=== PATIENT | male | born 1970 | race Caucasian/White ===

== ENCOUNTER 2020-07-13 07:10 | Observation (INO) | payer BC ==
[2020-07-11 14:57] LABS: BASOPHILS % 0.5 % (0.0-1.0); EOSINOPHILS # (AUTO) 0.2 (0.0-0.4); EOSINOPHILS % 2.2 % (0.0-6.0); HEMATOCRIT 42.8 % (38.2-49.6); HEMOGLOBIN 14.6 g/dL (14.0-18.0); LYMPHOCYTES # (AUTO) 2.1 (1.0-3.2); LYMPHOCYTES % 25.7 % (18.0-39.1); MEAN CORPUSCULAR HEMOGLOBIN 31.1 pg (28-32); MEAN CORPUSCULAR HGB CONC 34.1 g/dL (31-35); MEAN CORPUSCULAR VOLUME 91.1 fL (81-99); MONOCYTES # (AUTO) 0.9 (0.2-0.8); MONOCYTES % 11.7 % (4.4-11.3); NEUTROPHILS # (AUTO) 4.8 (2.1-6.9); NEUTROPHILS % 59.5 % (38.7-80.0); PLATELET COUNT 275 x10e3/uL (140-360); RED CELL DISTRIBUTION WIDTH 13.2 % (11.7-14.4)
[2020-07-11 15:16] LABS: ANION GAP 14.1 mmol/L (8-16); BLOOD UREA NITROGEN 13 mg/dL (7-26); BUN/CREATININE RATIO 13 (6-25); CALCIUM 8.8 mg/dL (8.4-10.2); CARBON DIOXIDE 28 mmol/L (22-29); CHLORIDE 102 mmol/L (98-107); CREATININE, SERUM 1.03 mg/dL (0.72-1.25); EST GLOMERULAR FILTRATION RATE > 60 ML/MIN (60-); GLUCOSE 102 mg/dL (74-118); POTASSIUM 4.1 mmol/L (3.5-5.1); SODIUM 140 mmol/L (136-145)
[~2020-07-13] VITALS: Ht 182.9 cm; Wt 165.6 kg
[~2020-07-13 07:10] MED LIST: AMLODIPINE BESY10 MG PO; LEVOTHYROXINE50 MCG PO; LOSARTAN-HCTZ1 EAC2 PO; METOPROLOL SUCC50 MG PO
[2020-07-13] MEDS ORDERED: BUPIVACAINE 0.5%/EPI 30 ML SDV INJ ONE (08:11)
[2020-07-13] MEDS ORDERED: HYDROCODONE/APAP 7.5MG-325MG 1 EA TAB PO PRN (12:45)
[2020-07-13] MEDS ORDERED: ONDANSETRON HCL INJ 2MG/ML 2ML 2 MG/ML VIAL IV PRN (12:45)
[2020-07-13] MEDS ORDERED: ACETAMINOPHEN 1000 MG/100 ML IV PRN (12:45)
[2020-07-13] MEDS ORDERED: HYDROMORPHONE 1MG/1ML INJ IV PRN (12:45)
[2020-07-13] MEDS ORDERED: PROPOFOL IV EMULSION 10 MG/ML 20 ML VIAL ONE (13:34)
[2020-07-13] MEDS ORDERED: DEXAMETHASONE SOD PHOS INJ 4 MG/ML VIAL ONE (13:34)
[2020-07-13] MEDS ORDERED: SEVOFLURANE INHAL SOLN 250 ML PEN BTL ONE (13:34)
[2020-07-13] MEDS ORDERED: POVIDONE IODINE 0.05% 0.05 % ML PO ONE (13:34)
[2020-07-13] MEDS ORDERED: NEOSTIGMINE 1 MG/ML 10ML VIAL ONE (13:34)
[2020-07-13] MEDS ORDERED: ATROPINE SULFATE 1 MG/ML VIAL ONE (13:34)
[2020-07-13] MEDS ORDERED: LIDOCAINE HCL 2% LOCAL INJ 5 ML SDV VIAL INJ ONE (13:34)
[2020-07-13] MEDS ORDERED: ONDANSETRON HCL INJ 2MG/ML 2ML 2 MG/ML VIAL ONE (13:34)
[2020-07-13] MEDS ORDERED: KETOROLAC TROMETHAMINE 30 MG/ML VIAL ONE (13:34)
[2020-07-13] MEDS ORDERED: ROCURONIUM BROMIDE 10 MG/ML 5ML VIAL IV ONE (13:34)
[2020-07-13 13:48] VITALS: BP 128/70
[2020-07-13] MEDS ORDERED: SODIUM CHLORIDE 0.9% 1000ML 1,000 ML IV SCH (14:00)
[2020-07-13] MEDS ORDERED: PANTOPRAZOLE 40 MG 10ML VIAL IV SCH (14:00)
[2020-07-13 14:17] VITALS: BP 128/70
[2020-07-13 15:26] VITALS: BP 128/70
[2020-07-13] MEDS ORDERED: CEFAZOLIN SOD 1 GM/NS 50ML 50 ML IV SCH (18:00)
[2020-07-14] MEDS ORDERED: AMLODIPINE BESYLATE 10 MG TAB PO SCH (09:00)
[2020-07-14] MEDS ORDERED: METOPROLOL SUCCINATE 50 MG TAB XL PO SCH (09:00)
== END 2020-07-13 20:18 | disposition home or self-care (01) ==
LOC: OR 07:10 → PACU V 12:46 → MED/SURG 13:38
PROVIDERS: ADMIT Surgery; ATTEND Surgery
DX: K43.6 Other and unspecified ventral hernia with obstruction, without gangrene (principal); Z20.822 Contact with and (suspected) exposure to COVID-19; Z01.818 Encounter for other preprocedural examination
CPT/HCPCS: 36415; 49561; 49568; 80048; 85025; 93005; C1781 ×2; C9113; G0378; J0461; J0690; J1100; J1885; J2001; J2405; J2704; J2710; J7030; U0002

== ENCOUNTER 2020-12-13 23:22 | Inpatient (IN) | payer BC ==
[~2020-12-13] VITALS: Ht 182.9 cm; Wt 167.8 kg
[2020-12-13] MEDS ORDERED: SODIUM CHLORIDE 0.9% 1000ML 1,000 ML IV ONE (23:45)
[2020-12-13 23:47] LABS: BASOPHILS # (AUTO) 0.1 (0.0-0.1); BASOPHILS % 0.5 % (0.0-1.0); EOSINOPHILS # (AUTO) 0.3 (0.0-0.4); EOSINOPHILS % 2.7 % (0.0-6.0); HEMATOCRIT 25.5 % (38.2-49.6); HEMOGLOBIN 8.2 g/dL (14.0-18.0); LYMPHOCYTES # (AUTO) 2.5 (1.0-3.2); LYMPHOCYTES % 22.9 % (18.0-39.1); MEAN CORPUSCULAR HEMOGLOBIN 31.7 pg (28-32); MEAN CORPUSCULAR HGB CONC 32.2 g/dL (31-35); MEAN CORPUSCULAR VOLUME 98.5 fL (81-99); MONOCYTES # (AUTO) 1.1 (0.2-0.8); MONOCYTES % 9.9 % (4.4-11.3); NEUTROPHILS # (AUTO) 6.7 (2.1-6.9); NEUTROPHILS % 61.9 % (38.7-80.0); PLATELET COUNT 230 x10e3/uL (140-360); RED BLOOD COUNT 2.59 x10e6/uL (4.3-5.7); RED CELL DISTRIBUTION WIDTH 14.8 % (11.7-14.4)
[2020-12-13] MEDS ORDERED: SODIUM CHLORIDE 0.9% 1000ML 1,000 ML ONE (23:53)
[2020-12-13 23:56] LABS: INR 1.06; PARTIAL THROMBOPLASTIN TIME 21.9 seconds (23.8-35.5)
[2020-12-14] VITALS (10 sets, daily range): BP systolic 105–142; BP diastolic 55–85
[2020-12-14 00:06] LABS: ALBUMIN/GLOBULIN RATIO 1.4 (0.8-2.0); ANION GAP 11.6 mmol/L (8-16); CALCIUM 7.7 mg/dL (8.4-10.2); CREATININE, SERUM 1.03 mg/dL (0.72-1.25); POTASSIUM 3.6 mmol/L (3.5-5.1)
[2020-12-14] MEDS ORDERED: FUROSEMIDE40 MG PO (00:26)
[2020-12-14] MEDS ORDERED: BYSTOLIC5 MG PO (00:26)
[2020-12-14] MEDS ORDERED: POTASSIUM CHLO20 ME2 PO (00:26)
[2020-12-14] MEDS ORDERED: MEN'S MULTIVIT1 EACH PO (00:32)
[2020-12-14] MEDS ORDERED: zinc PO (00:32)
[2020-12-14] MEDS ORDERED: DHEA TABLET1 EACH PO (00:32)
[2020-12-14] MEDS ORDERED: VITAMIN D310 MCG PO (00:32)
[2020-12-14] MEDS ORDERED: FISH OIL 1,0001 EAC2 PO (00:32)
[2020-12-14] MEDS ORDERED: VITAMIN B-121000 MCG PO (00:32)
[2020-12-14] MEDS ORDERED: SODIUM CHLORIDE 0.9% 50ML 50 ML ONE (00:32)
[2020-12-14] MEDS ORDERED: VITAMIN C1000 MG PO (00:32)
[2020-12-14] MEDS ORDERED: IOPAMIDOL 370 MG/ML 200 ML INFUS..BTL INJ ONE (00:32)
[2020-12-14] MEDS ORDERED: SODIUM CHLORIDE 0.9% 250ML 250 ML IV ONE (01:45)
[2020-12-14 02:28] LABS: HEMATOCRIT 22.8 % (38.2-49.6); HEMOGLOBIN 7.3 g/dL (14.0-18.0)
[2020-12-14] MEDS: SODIUM CHLORIDE 0.9% 1000ML 1,000 ML IV SCH ×3 (02:31→23:29)
[2020-12-14 06:32] LABS: HEMATOCRIT 22.3 % (38.2-49.6); HEMOGLOBIN 7.1 g/dL (14.0-18.0)
[2020-12-14] MEDS ORDERED: BISACODYL 5 MG TAB EC PO ONE ×3 (07:30→12:00)
[2020-12-14 07:31] LABS: HEMATOCRIT 22.3 % (38.2-49.6); HEMOGLOBIN 7.3 g/dL (14.0-18.0)
[2020-12-14] MEDS ORDERED: PEG (High)/E-LYTE SOLN 4,000 ML BTL PO ONE (09:00)
[2020-12-14] MEDS ORDERED: HYDRALAZINE HCL 20 MG/ML VIAL IV PRN (09:15)
[2020-12-14] MEDS ORDERED: CEFTRIAXONE 1 GM VIAL IV SCH (12:15)
[2020-12-14] MEDS: CEFTRIAXONE 1 GM in SODIUM CHLORIDE 0.9% 50ML 50 ML IV SCH ×2 (13:13→23:49)
[2020-12-14] MEDS: METRONIDAZOLE 500MG/NS 100ML 100 ML IV SCH ×2 (14:00→23:29)
[2020-12-14 14:18] LABS: HEMATOCRIT 23.4 % (38.2-49.6); HEMOGLOBIN 7.7 g/dL (14.0-18.0)
[2020-12-14 18:30] LABS: HEMATOCRIT 21.4 % (38.2-49.6)
[2020-12-14 18:35] LABS: HEMOGLOBIN 6.8 g/dL (14.0-18.0)
[2020-12-14] MEDS ORDERED: ACETAMINOPHEN 325 MG TAB PO PRN (19:45)
[2020-12-14] MEDS ORDERED: OCTREOTIDE ACETATE 500 MCG in SODIUM CHLORIDE 0.9% 250ML 249 ML IV SCH (20:00)
[2020-12-15] VITALS (7 sets, daily range): BP systolic 102–122; BP diastolic 59–72
[2020-12-15] MEDS ORDERED: SODIUM CHLORIDE 0.9% 250ML 250 ML ONE (01:17)
[2020-12-15 05:05] LABS: BASOPHILS % 0.5 % (0.0-1.0); EOSINOPHILS # (AUTO) 0.3 (0.0-0.4); EOSINOPHILS % 3.2 % (0.0-6.0); HEMOGLOBIN 7.9 g/dL (14.0-18.0); LYMPHOCYTES # (AUTO) 2.2 (1.0-3.2); MEAN CORPUSCULAR HEMOGLOBIN 31.2 pg (28-32); MEAN CORPUSCULAR HGB CONC 32.9 g/dL (31-35); MEAN CORPUSCULAR VOLUME 94.9 fL (81-99); MONOCYTES # (AUTO) 0.8 (0.2-0.8); MONOCYTES % 9.8 % (4.4-11.3); NEUTROPHILS # (AUTO) 4.5 (2.1-6.9); NEUTROPHILS % 56.3 % (38.7-80.0); PLATELET COUNT 209 x10e3/uL (140-360); RED BLOOD COUNT 2.53 x10e6/uL (4.3-5.7); RED CELL DISTRIBUTION WIDTH 16.1 % (11.7-14.4)
[2020-12-15] MEDS: METRONIDAZOLE 500MG/NS 100ML 100 ML IV SCH ×3 (05:05→20:18)
[2020-12-15 05:22] LABS: ALBUMIN 2.7 g/dL (3.5-5.0); ALBUMIN/GLOBULIN RATIO 1.5 (0.8-2.0); ANION GAP 9.6 mmol/L (8-16); CALCIUM 7.5 mg/dL (8.4-10.2); CREATININE, SERUM 0.98 mg/dL (0.72-1.25); POTASSIUM 3.6 mmol/L (3.5-5.1)
[2020-12-15 06:10] LABS: THYROID STIMULATING HORMONE 4.069 uIU/mL (0.350-4.940)
[2020-12-15] MEDS: SODIUM CHLORIDE 0.9% 1000ML 1,000 ML IV SCH (12:53)
[2020-12-15] MEDS: OCTREOTIDE ACETATE 500 MCG in SODIUM CHLORIDE 0.9% 250ML 249 ML IV SCH (15:11)
[2020-12-15] MEDS: CEFTRIAXONE 1 GM in SODIUM CHLORIDE 0.9% 50ML 50 ML IV SCH (15:11)
[2020-12-15] MEDS ORDERED: CITRATE OF MAGNESIA 300ML BOTTLE PO ONE (20:15)
[2020-12-15] MEDS ORDERED: BISACODYL 5 MG TAB EC PO ONE ×2 (22:15→23:45)
[2020-12-16] VITALS (7 sets, daily range): BP systolic 108–127; BP diastolic 55–77
[2020-12-16] MEDS: CEFTRIAXONE 1 GM in SODIUM CHLORIDE 0.9% 50ML 50 ML IV SCH ×3 (00:10→23:57)
[2020-12-16] MEDS: OCTREOTIDE ACETATE 500 MCG in SODIUM CHLORIDE 0.9% 250ML 249 ML IV SCH ×3 (01:24→21:19)
[2020-12-16] MEDS: SODIUM CHLORIDE 0.9% 1000ML 1,000 ML IV SCH ×3 (04:15→23:58)
[2020-12-16 05:32] LABS: HEMATOCRIT 22.9 % (38.2-49.6); HEMOGLOBIN 7.3 g/dL (14.0-18.0)
[2020-12-16] MEDS: METRONIDAZOLE 500MG/NS 100ML 100 ML IV SCH ×3 (06:26→21:19)
[2020-12-16] MEDS ORDERED: SODIUM CHLORIDE 0.9% 250ML 250 ML IV ONE (06:30)
[2020-12-16] MEDS ORDERED: SODIUM CHLORIDE 0.9% 250ML 250 ML ONE ×2 (10:25→12:17)
[2020-12-16] MEDS ORDERED: SODIUM CHLORIDE 0.9% 100 ML ONE (14:13)
[2020-12-16] MEDS ORDERED: IOPAMIDOL 370 MG/ML 200 ML INFUS..BTL INJ ONE (14:13)
[2020-12-16 18:20] LABS: BASOPHILS % 0.4 % (0.0-1.0); EOSINOPHILS # (AUTO) 0.2 (0.0-0.4); EOSINOPHILS % 2.2 % (0.0-6.0); HEMOGLOBIN 8.9 g/dL (14.0-18.0); LYMPHOCYTES # (AUTO) 1.6 (1.0-3.2); MEAN CORPUSCULAR HEMOGLOBIN 31.6 pg (28-32); MEAN CORPUSCULAR VOLUME 95.7 fL (81-99); MONOCYTES # (AUTO) 0.8 (0.2-0.8); MONOCYTES % 10.3 % (4.4-11.3); NEUTROPHILS # (AUTO) 5.2 (2.1-6.9); NEUTROPHILS % 63.6 % (38.7-80.0); PLATELET COUNT 209 x10e3/uL (140-360); RED BLOOD COUNT 2.82 x10e6/uL (4.3-5.7); RED CELL DISTRIBUTION WIDTH 17.3 % (11.7-14.4)
[2020-12-16] MEDS ORDERED: ZOLPIDEM TARTRATE 10 MG TAB PO PRN (21:00)
[2020-12-17] VITALS (8 sets, daily range): BP systolic 107–146; BP diastolic 45–89
[2020-12-17] MEDS: METRONIDAZOLE 500MG/NS 100ML 100 ML IV SCH ×3 (05:36→21:01)
[2020-12-17 06:01] LABS: BASOPHILS % 0.5 % (0.0-1.0); EOSINOPHILS # (AUTO) 0.2 (0.0-0.4); EOSINOPHILS % 2.6 % (0.0-6.0); HEMATOCRIT 25.3 % (38.2-49.6); HEMOGLOBIN 8.3 g/dL (14.0-18.0); LYMPHOCYTES # (AUTO) 1.8 (1.0-3.2); MEAN CORPUSCULAR HEMOGLOBIN 31.4 pg (28-32); MEAN CORPUSCULAR HGB CONC 32.8 g/dL (31-35); MEAN CORPUSCULAR VOLUME 95.8 fL (81-99); MONOCYTES # (AUTO) 0.7 (0.2-0.8); MONOCYTES % 9.7 % (4.4-11.3); NEUTROPHILS # (AUTO) 4.6 (2.1-6.9); PLATELET COUNT 225 x10e3/uL (140-360); RED BLOOD COUNT 2.64 x10e6/uL (4.3-5.7); RED CELL DISTRIBUTION WIDTH 17.5 % (11.7-14.4)
[2020-12-17 06:32] LABS: ALBUMIN 2.6 g/dL (3.5-5.0); ALBUMIN/GLOBULIN RATIO 1.4 (0.8-2.0); ANION GAP 11.6 mmol/L (8-16); CALCIUM 7.4 mg/dL (8.4-10.2); CREATININE, SERUM 0.98 mg/dL (0.72-1.25); POTASSIUM 3.6 mmol/L (3.5-5.1)
[2020-12-17] MEDS: OCTREOTIDE ACETATE 500 MCG in SODIUM CHLORIDE 0.9% 250ML 249 ML IV SCH ×2 (09:00→17:00)
[2020-12-17] MEDS: CEFTRIAXONE 1 GM in SODIUM CHLORIDE 0.9% 50ML 50 ML IV SCH (13:00)
[2020-12-17] MEDS ORDERED: ERYTHROMYCIN 500 MG TAB PO SCH (17:20)
[2020-12-17] MEDS ORDERED: NEOMYCIN SULFATE 500 MG TAB PO SCH (17:20)
[2020-12-17] MEDS: MAGNESIUM HYDROXIDE 30 ML UDC PO SCH (21:01)
[2020-12-17] MEDS: SODIUM CHLORIDE 0.9% 1000ML 1,000 ML IV SCH (21:01)
[2020-12-18] VITALS (8 sets, daily range): BP systolic 109–138; BP diastolic 57–85
[2020-12-18] MEDS: CEFTRIAXONE 1 GM in SODIUM CHLORIDE 0.9% 50ML 50 ML IV SCH ×2 (00:51→13:00)
[2020-12-18] MEDS: OCTREOTIDE ACETATE 500 MCG in SODIUM CHLORIDE 0.9% 250ML 249 ML IV SCH ×2 (05:05→13:00)
[2020-12-18] MEDS: METRONIDAZOLE 500MG/NS 100ML 100 ML IV SCH ×3 (05:06→21:27)
[2020-12-18 06:03] LABS: BASOPHILS % 0.4 % (0.0-1.0); EOSINOPHILS # (AUTO) 0.2 (0.0-0.4); EOSINOPHILS % 2.9 % (0.0-6.0); HEMATOCRIT 23.5 % (38.2-49.6); HEMOGLOBIN 7.5 g/dL (14.0-18.0); LYMPHOCYTES # (AUTO) 1.9 (1.0-3.2); LYMPHOCYTES % 26.6 % (18.0-39.1); MEAN CORPUSCULAR HEMOGLOBIN 31.4 pg (28-32); MEAN CORPUSCULAR HGB CONC 31.9 g/dL (31-35); MEAN CORPUSCULAR VOLUME 98.3 fL (81-99); MONOCYTES # (AUTO) 0.8 (0.2-0.8); MONOCYTES % 10.9 % (4.4-11.3); NEUTROPHILS # (AUTO) 4.1 (2.1-6.9); PLATELET COUNT 244 x10e3/uL (140-360); RED BLOOD COUNT 2.39 x10e6/uL (4.3-5.7); RED CELL DISTRIBUTION WIDTH 18.5 % (11.7-14.4)
[2020-12-18 06:19] LABS: BLOOD UREA NITROGEN < 5 mg/dL (7-26); CALCIUM 7.2 mg/dL (8.4-10.2); CARBON DIOXIDE 25 mmol/L (22-29); CHLORIDE 107 mmol/L (98-107); CREATININE, SERUM 0.99 mg/dL (0.72-1.25); EST GLOMERULAR FILTRATION RATE 80 ML/MIN (60-); GLUCOSE 166 mg/dL (74-118); SODIUM 140 mmol/L (136-145)
[2020-12-18 06:21] LABS: BUN/CREATININE RATIO 5 (6-25)
[2020-12-18] MEDS ORDERED: SODIUM CHLORIDE 0.9% 250ML 250 ML IV ONE ×2 (06:30→18:45)
[2020-12-18] MEDS: SODIUM CHLORIDE 0.9% 1000ML 1,000 ML IV SCH ×2 (07:33→20:53)
[2020-12-18] MEDS ORDERED: SODIUM CHLORIDE 0.9% 250ML 250 ML ONE (09:59)
[2020-12-18] MEDS: ONDANSETRON HCL INJ 2MG/ML 2ML 2 MG/ML VIAL IV PRN ×4 (12:00→23:30)
[2020-12-18] MEDS: NEOMYCIN SULFATE 500 MG TAB PO SCH ×3 (13:00→23:00)
[2020-12-18] MEDS: ERYTHROMYCIN 500 MG TAB PO SCH ×3 (13:00→23:00)
[2020-12-18] MEDS: MAGNESIUM HYDROXIDE 30 ML UDC PO SCH (21:27)
[2020-12-19] VITALS (9 sets, daily range): BP systolic 108–134; BP diastolic 62–85
[2020-12-19] MEDS: CEFTRIAXONE 1 GM in SODIUM CHLORIDE 0.9% 50ML 50 ML IV SCH ×2 (01:00→12:36)
[2020-12-19] MEDS: OCTREOTIDE ACETATE 500 MCG in SODIUM CHLORIDE 0.9% 250ML 249 ML IV SCH (01:17)
[2020-12-19] MEDS: ONDANSETRON HCL INJ 2MG/ML 2ML 2 MG/ML VIAL IV PRN ×2 (01:30→22:09)
[2020-12-19] MEDS: METRONIDAZOLE 500MG/NS 100ML 100 ML IV SCH ×3 (06:00→22:09)
[2020-12-19 06:22] LABS: BASOPHILS % 0.3 % (0.0-1.0); EOSINOPHILS # (AUTO) 0.2 (0.0-0.4); EOSINOPHILS % 1.7 % (0.0-6.0); HEMATOCRIT 23.5 % (38.2-49.6); HEMOGLOBIN 7.6 g/dL (14.0-18.0); LYMPHOCYTES # (AUTO) 1.6 (1.0-3.2); LYMPHOCYTES % 15.6 % (18.0-39.1); MEAN CORPUSCULAR HEMOGLOBIN 31.3 pg (28-32); MEAN CORPUSCULAR HGB CONC 32.3 g/dL (31-35); MEAN CORPUSCULAR VOLUME 96.7 fL (81-99); MONOCYTES # (AUTO) 0.8 (0.2-0.8); MONOCYTES % 7.5 % (4.4-11.3); NEUTROPHILS # (AUTO) 7.3 (2.1-6.9); NEUTROPHILS % 72.5 % (38.7-80.0); PLATELET COUNT 213 x10e3/uL (140-360); RED BLOOD COUNT 2.43 x10e6/uL (4.3-5.7); RED CELL DISTRIBUTION WIDTH 19.3 % (11.7-14.4)
[2020-12-19 06:51] LABS: ANION GAP 10.5 mmol/L (8-16); BLOOD UREA NITROGEN < 5 mg/dL (7-26); CARBON DIOXIDE 26 mmol/L (22-29); CHLORIDE 106 mmol/L (98-107); CREATININE, SERUM 0.93 mg/dL (0.72-1.25); EST GLOMERULAR FILTRATION RATE 86 ML/MIN (60-); GLUCOSE 113 mg/dL (74-118); POTASSIUM 3.5 mmol/L (3.5-5.1); SODIUM 139 mmol/L (136-145)
[2020-12-19 06:54] LABS: BUN/CREATININE RATIO 5 (6-25)
[2020-12-19 06:57] LABS: INR 1.12; PARTIAL THROMBOPLASTIN TIME 26.5 seconds (23.8-35.5); PROTHROMBIN TIME 14.6 seconds (11.9-14.5)
[2020-12-19] MEDS ORDERED: ACETAMINOPHEN 1000 MG/100 ML 100 ML IV ONE (08:32)
[2020-12-19] MEDS ORDERED: KETOROLAC TROMETHAMINE 30 MG/ML VIAL IV PRN (11:15)
[2020-12-19] MEDS: SODIUM CHLORIDE 0.9% 1000ML 1,000 ML IV SCH ×2 (11:15→23:38)
[2020-12-19] MEDS: SODIUM CHLORIDE 0.9% 250ML IRRIG IR SCH ×4 (11:15→23:38)
[2020-12-19] MEDS ORDERED: NALOXONE HCL INJ 0.4 MG/ML AMP IV PRN (11:15)
[2020-12-19] MEDS ORDERED: ACETAMINOPHEN 1000 MG/100 ML IV PRN (11:15)
[2020-12-19] MEDS: HYDROMORPHONE 0.2MG/ML-SOD CHL 30ML PCA SYRINGE IV PRN (11:18)
[2020-12-19] MEDS ORDERED: ONDANSETRON HCL INJ 2MG/ML 2ML 2 MG/ML VIAL ONE (11:39)
[2020-12-19] MEDS ORDERED: FENTANYL CITRATE/PF 100MCG/2 ML INJ ONE (11:39)
[2020-12-19] MEDS ORDERED: CEFTRIAXONE 1 GM VIAL ONE (12:42)
[2020-12-19] MEDS ORDERED: SODIUM CHLORIDE 0.9% 50ML 50 ML ONE (12:43)
[2020-12-20] VITALS (8 sets, daily range): BP systolic 127–159; BP diastolic 77–92
[2020-12-20] MEDS: CEFTRIAXONE 1 GM in SODIUM CHLORIDE 0.9% 50ML 50 ML IV SCH ×2 (00:54→13:42)
[2020-12-20] MEDS: SODIUM CHLORIDE 0.9% 1000ML 1,000 ML IV SCH ×3 (03:15→17:46)
[2020-12-20] MEDS: SODIUM CHLORIDE 0.9% 250ML IRRIG IR SCH ×6 (03:41→22:08)
[2020-12-20] MEDS: HYDROMORPHONE 0.2MG/ML-SOD CHL 30ML PCA SYRINGE IV PRN (06:05)
[2020-12-20] MEDS: METRONIDAZOLE 500MG/NS 100ML 100 ML IV SCH ×3 (06:05→22:00)
[2020-12-20 08:35] LABS: BASOPHILS % 0.2 % (0.0-1.0); HEMATOCRIT 28.6 % (38.2-49.6); HEMOGLOBIN 9.2 g/dL (14.0-18.0); LYMPHOCYTES # (AUTO) 1.1 (1.0-3.2); LYMPHOCYTES % 6.6 % (18.0-39.1); MEAN CORPUSCULAR HGB CONC 32.2 g/dL (31-35); MEAN CORPUSCULAR VOLUME 96.3 fL (81-99); MONOCYTES # (AUTO) 1.5 (0.2-0.8); MONOCYTES % 8.5 % (4.4-11.3); NEUTROPHILS # (AUTO) 14.5 (2.1-6.9); NEUTROPHILS % 83.1 % (38.7-80.0); PLATELET COUNT 237 x10e3/uL (140-360); RED BLOOD COUNT 2.97 x10e6/uL (4.3-5.7); RED CELL DISTRIBUTION WIDTH 19.5 % (11.7-14.4)
[2020-12-20 09:04] LABS: ANION GAP 9.2 mmol/L (8-16); CALCIUM 7.2 mg/dL (8.4-10.2); CREATININE, SERUM 1.12 mg/dL (0.72-1.25); POTASSIUM 4.2 mmol/L (3.5-5.1)
[2020-12-20] MEDS ORDERED: NEBIVOLOL HCL 2.5 MG TABLET PO SCH (12:15)
[2020-12-20] MEDS ORDERED: ZOLPIDEM TARTRATE 10 MG TAB PO PRN (21:00)
[2020-12-21] MEDS: SODIUM CHLORIDE 0.9% 250ML IRRIG IR SCH (00:13)
[2020-12-21] MEDS: CEFTRIAXONE 1 GM in SODIUM CHLORIDE 0.9% 50ML 50 ML IV SCH ×2 (01:00→13:04)
[2020-12-21] MEDS: SODIUM CHLORIDE 0.9% 1000ML 1,000 ML IV SCH ×2 (04:00→12:15)
[2020-12-21] MEDS: METRONIDAZOLE 500MG/NS 100ML 100 ML IV SCH (05:27)
[2020-12-21] MEDS: LEVOTHYROXINE SODIUM 50 MCG TAB PO SCH (05:27)
[2020-12-21 05:59] LABS: BASOPHILS # (AUTO) 0.1 (0.0-0.1); BASOPHILS % 0.4 % (0.0-1.0); EOSINOPHILS # (AUTO) 0.1 (0.0-0.4); EOSINOPHILS % 0.5 % (0.0-6.0); HEMATOCRIT 26.8 % (38.2-49.6); HEMOGLOBIN 8.4 g/dL (14.0-18.0); LYMPHOCYTES # (AUTO) 1.7 (1.0-3.2); LYMPHOCYTES % 14.2 % (18.0-39.1); MEAN CORPUSCULAR HEMOGLOBIN 31.1 pg (28-32); MEAN CORPUSCULAR HGB CONC 31.3 g/dL (31-35); MEAN CORPUSCULAR VOLUME 99.3 fL (81-99); MONOCYTES # (AUTO) 1.1 (0.2-0.8); NEUTROPHILS # (AUTO) 8.8 (2.1-6.9); NEUTROPHILS % 74.7 % (38.7-80.0); PLATELET COUNT 210 x10e3/uL (140-360); RED CELL DISTRIBUTION WIDTH 19.6 % (11.7-14.4)
[2020-12-21 06:16] LABS: ALBUMIN 2.6 g/dL (3.5-5.0); ALBUMIN/GLOBULIN RATIO 1.2 (0.8-2.0); ANION GAP 11.5 mmol/L (8-16); CALCIUM 7.3 mg/dL (8.4-10.2); POTASSIUM 3.5 mmol/L (3.5-5.1)
[2020-12-21 07:23] LABS: CREATININE, SERUM 0.92 mg/dL (0.72-1.25)
[2020-12-21 07:53] VITALS: BP 127/80
[2020-12-21 07:54] VITALS: BP 126/74
[2020-12-21] MEDS: FUROSEMIDE 40 MG TAB PO SCH (07:55)
[2020-12-21] MEDS: HYDROMORPHONE 0.2MG/ML-SOD CHL 30ML PCA SYRINGE IV PRN (08:38)
[2020-12-21] MEDS ORDERED: HYDROMORPHONE 0.2MG/ML-SOD CHL 30ML PCA SYRINGE IV PRN (09:45)
[2020-12-21] MEDS ORDERED: POTASSIUM CHLORIDE 10MEQ/100ML 100 ML IV ONE (13:30)
[2020-12-21 15:59] VITALS: BP 145/87
[2020-12-21] MEDS ORDERED: HYDROCODONE/APAP 7.5MG-325MG 1 EA TAB PO PRN (17:15)
[2020-12-21 20:00] VITALS: BP 136/89
[2020-12-21 21:16] VITALS: BP 136/89
[2020-12-22] VITALS (8 sets, daily range): BP systolic 128–154; BP diastolic 61–100
[2020-12-22] MEDS: CEFTRIAXONE 1 GM in SODIUM CHLORIDE 0.9% 50ML 50 ML IV SCH ×2 (00:11→13:16)
[2020-12-22] MEDS: SODIUM CHLORIDE 0.9% 1000ML 1,000 ML IV SCH (01:08)
[2020-12-22] MEDS: LEVOTHYROXINE SODIUM 50 MCG TAB PO SCH (05:25)
[2020-12-22 05:53] LABS: BASOPHILS % 0.4 % (0.0-1.0); EOSINOPHILS # (AUTO) 0.2 (0.0-0.4); EOSINOPHILS % 2.2 % (0.0-6.0); HEMATOCRIT 25.6 % (38.2-49.6); LYMPHOCYTES # (AUTO) 1.1 (1.0-3.2); MEAN CORPUSCULAR HEMOGLOBIN 30.3 pg (28-32); MEAN CORPUSCULAR HGB CONC 31.3 g/dL (31-35); MONOCYTES # (AUTO) 0.8 (0.2-0.8); MONOCYTES % 9.2 % (4.4-11.3); NEUTROPHILS % 73.5 % (38.7-80.0); PLATELET COUNT 213 x10e3/uL (140-360); RED BLOOD COUNT 2.64 x10e6/uL (4.3-5.7); RED CELL DISTRIBUTION WIDTH 18.8 % (11.7-14.4)
[2020-12-22 06:29] LABS: ALBUMIN 2.4 g/dL (3.5-5.0); ALBUMIN/GLOBULIN RATIO 1.1 (0.8-2.0); ANION GAP 13.1 mmol/L (8-16); CALCIUM 7.4 mg/dL (8.4-10.2); CREATININE, SERUM 0.74 mg/dL (0.72-1.25); POTASSIUM 3.1 mmol/L (3.5-5.1)
[2020-12-22] MEDS: FUROSEMIDE 40 MG TAB PO SCH (09:40)
[2020-12-22] MEDS ORDERED: POTASSIUM CHLORIDE 20 MEQ TAB CR PO ONE (12:45)
[2020-12-23 00:16] VITALS: BP 121/60
[2020-12-23] MEDS: CEFTRIAXONE 1 GM in SODIUM CHLORIDE 0.9% 50ML 50 ML IV SCH (00:17)
[2020-12-23 04:00] VITALS: BP 112/72
[2020-12-23] MEDS: SODIUM CHLORIDE 0.9% 1000ML 1,000 ML IV SCH (04:52)
[2020-12-23] MEDS: LEVOTHYROXINE SODIUM 50 MCG TAB PO SCH (05:08)
[2020-12-23 06:09] LABS: BASOPHILS % 0.5 % (0.0-1.0); EOSINOPHILS # (AUTO) 0.2 (0.0-0.4); EOSINOPHILS % 4.1 % (0.0-6.0); HEMATOCRIT 25.7 % (38.2-49.6); HEMOGLOBIN 8.1 g/dL (14.0-18.0); LYMPHOCYTES % 17.5 % (18.0-39.1); MEAN CORPUSCULAR HEMOGLOBIN 30.6 pg (28-32); MEAN CORPUSCULAR HGB CONC 31.5 g/dL (31-35); MONOCYTES # (AUTO) 0.7 (0.2-0.8); MONOCYTES % 11.1 % (4.4-11.3); NEUTROPHILS # (AUTO) 3.9 (2.1-6.9); NEUTROPHILS % 66.1 % (38.7-80.0); PLATELET COUNT 212 x10e3/uL (140-360); RED BLOOD COUNT 2.65 x10e6/uL (4.3-5.7); RED CELL DISTRIBUTION WIDTH 17.9 % (11.7-14.4)
[2020-12-23 06:46] LABS: ANION GAP 12.2 mmol/L (8-16); BLOOD UREA NITROGEN < 5 mg/dL (7-26); CALCIUM 7.8 mg/dL (8.4-10.2); CARBON DIOXIDE 24 mmol/L (22-29); CHLORIDE 107 mmol/L (98-107); CREATININE, SERUM 0.82 mg/dL (0.72-1.25); EST GLOMERULAR FILTRATION RATE 100 ML/MIN (60-); GLUCOSE 89 mg/dL (74-118); MAGNESIUM 1.7 MG/DL (1.3-2.1); PHOSPHORUS 3.9 MG/DL (2.3-4.7); POTASSIUM 3.2 mmol/L (3.5-5.1); SODIUM 140 mmol/L (136-145)
[2020-12-23 06:47] LABS: BUN/CREATININE RATIO 6 (6-25)
[2020-12-23 08:00] VITALS: BP 141/87
[2020-12-23 08:30] VITALS: BP 141/87
[2020-12-23] MEDS: FUROSEMIDE 40 MG TAB PO SCH (09:15)
[2020-12-23] MEDS ORDERED: BYSTOLIC2.5 MG PO (10:53)
[2020-12-23] MEDS ORDERED: FUROSEMIDE40 MG PO (11:37)
[2020-12-23] MEDS ORDERED: MAGNESIUM OXIDE 400 MG TAB PO ONE (12:00)
[2020-12-23] MEDS ORDERED: POTASSIUM CHLORIDE 20 MEQ TAB CR PO ONE (12:00)
== END 2020-12-23 12:50 | disposition home or self-care (01) | DRG 330 ==
LOC: ER 23:31 → ERHOLD 12-14 01:34 → MED/SURG3 12-14 03:31 → IMCU 12-19 13:39 → MED/SURG 12-21 17:39
PROVIDERS: ADMIT Internal Medicine; ATTEND Internal Medicine
PROC: 30233N1 Transfusion of Nonautologous Red Blood Cells into Peripheral Vein, Percutaneous Approach (ICD-10-PCS; 2020-12-14)
PROC: 0DBH8ZZ Excision of Cecum, Via Natural or Artificial Opening Endoscopic (ICD-10-PCS; 2020-12-15 13:30)
PROC: 0DBL8ZZ Excision of Transverse Colon, Via Natural or Artificial Opening Endoscopic (ICD-10-PCS; 2020-12-15 13:30)
PROC: 0DB38ZX Excision of Lower Esophagus, Via Natural or Artificial Opening Endoscopic, Diagnostic (ICD-10-PCS; 2020-12-19)
PROC: 0DB78ZX Excision of Stomach, Pylorus, Via Natural or Artificial Opening Endoscopic, Diagnostic (ICD-10-PCS; 2020-12-19)
PROC: 0D738ZZ Dilation of Lower Esophagus, Via Natural or Artificial Opening Endoscopic (ICD-10-PCS; 2020-12-19)
PROC: 0DTA0ZZ Resection of Jejunum, Open Approach (ICD-10-PCS; principal; 2020-12-19 08:25)
DX: K57.11 Diverticulosis of small intestine without perforation or abscess with bleeding (principal); D62 Acute posthemorrhagic anemia; Z68.43 Body mass index [BMI] 50.0-59.9, adult; E87.6 Hypokalemia; E66.01 Morbid (severe) obesity due to excess calories; E03.9 Hypothyroidism, unspecified; R13.10 Dysphagia, unspecified; K44.9 Diaphragmatic hernia without obstruction or gangrene; K25.3 Acute gastric ulcer without hemorrhage or perforation; K21.00 Gastro-esophageal reflux disease with esophagitis, without bleeding; Z20.822 Contact with and (suspected) exposure to COVID-19; I10 Essential (primary) hypertension; E83.42 Hypomagnesemia
CPT/HCPCS: 36415; 43239; 43450; 45378; 71045; 74174; 80048; 80053; 83036; 83540; 83735; 84100; 84443; 84466; 85014; 85018; 85025; 85610; 85730; 86850; 86900; 86920; 88305; 88307; 88312; 96361; 99284; J0360; J0696; J2353; J2405; J3010; J3480; J7030; J7050; P9016; Q9967; U0002

== ENCOUNTER 2020-12-29 14:24 | Inpatient (IN) | payer BC ==
[~2020-12-29] VITALS: Ht 182.9 cm; Wt 157.5 kg
[~2020-12-29 14:24] MED LIST changes: +BYSTOLIC2.5 MG PO; +BYSTOLIC5 MG PO; +DHEA TABLET1 EACH PO; +FISH OIL 1,0001 EAC2 PO; +FUROSEMIDE40 MG PO; +MEN'S MULTIVIT1 EACH PO; +POTASSIUM CHLO20 ME2 PO; +VITAMIN B-121000 MCG PO; +VITAMIN C1000 MG PO; +VITAMIN D310 MCG PO; +zinc PO
[2020-12-29] MEDS ORDERED: ACETAMINOPHEN 325 MG TAB PO STA (14:33)
[2020-12-29] MEDS ORDERED: METHYLPREDNISOLONE SOD SUCC 125 MG/2ML VIAL IV ONE (14:45)
[2020-12-29 15:10] LABS: BASOPHILS % 0.4 % (0.0-1.0); EOSINOPHILS # (AUTO) 0.1 (0.0-0.4); EOSINOPHILS % 0.7 % (0.0-6.0); HEMATOCRIT 36.3 % (38.2-49.6); HEMOGLOBIN 11.6 g/dL (14.0-18.0); LYMPHOCYTES # (AUTO) 1.3 (1.0-3.2); LYMPHOCYTES % 12.1 % (18.0-39.1); MEAN CORPUSCULAR HEMOGLOBIN 29.4 pg (28-32); MEAN CORPUSCULAR VOLUME 92.1 fL (81-99); MONOCYTES # (AUTO) 1.1 (0.2-0.8); MONOCYTES % 10.4 % (4.4-11.3); NEUTROPHILS # (AUTO) 8.1 (2.1-6.9); NEUTROPHILS % 75.7 % (38.7-80.0); PLATELET COUNT 367 x10e3/uL (140-360); RED BLOOD COUNT 3.94 x10e6/uL (4.3-5.7)
[2020-12-29] MEDS ORDERED: CEFTRIAXONE 1 GM in SODIUM CHLORIDE 0.9% 50ML 50 ML IV ONE (15:15)
[2020-12-29 15:24] LABS: ALBUMIN 3.2 g/dL (3.5-5.0); ALBUMIN/GLOBULIN RATIO 0.8 (0.8-2.0); ANION GAP 15.9 mmol/L (8-16); CALCIUM 8.4 mg/dL (8.4-10.2); CREATININE, SERUM 1.33 mg/dL (0.72-1.25); POTASSIUM 3.9 mmol/L (3.5-5.1)
[2020-12-29] MEDS ORDERED: D5.45%NS/KCL 20MEQ 1,000 ML IV STA (15:59)
[2020-12-29] MEDS ORDERED: IOPAMIDOL 370 MG/ML 200 ML INFUS..BTL INJ ONE (16:08)
[2020-12-29] MEDS ORDERED: SODIUM CHLORIDE 0.9% 50ML 50 ML ONE (16:08)
[2020-12-29 16:17] LABS: CREATINE KINASE MB 1.3 ng/mL (0-5.0)
[2020-12-29] MEDS ORDERED: HEPARIN 25,000 UNIT 1,500 UNIT in DEXTROSE 5% 250ML 250 ML IV SCH (16:45)
[2020-12-29] MEDS ORDERED: HEPARIN SOD (PORCINE) 5,000 UNIT/ML VIAL IV ONE ×2 (16:45→17:00)
[2020-12-29] MEDS ORDERED: HEPARIN 25,000 UNIT DRIP IV ONE (17:21)
[2020-12-29] MEDS: HEPARIN 25,000 UNIT 1,500 UNIT in DEXTROSE 5% 250ML 250 ML IV SCH (17:27)
[2020-12-29 17:46] LABS: INR 1.01; PROTHROMBIN TIME 13.7 seconds (11.9-14.5)
[2020-12-29 17:47] LABS: PARTIAL THROMBOPLASTIN TIME 34.4 seconds (23.8-35.5)
[2020-12-29] MEDS: BENZONATATE 100 MG CAP PO PRN (19:10)
[2020-12-29 19:30] VITALS: BP 113/82
[2020-12-29] MEDS ORDERED: METOPROLOL TARTRATE INJ 1 MG/ML VIAL IV PRN (19:30)
[2020-12-29] MEDS ORDERED: POLYETHYLENE GLYCOL 3350 17 GM PACK PO PRN (19:30)
[2020-12-29] MEDS ORDERED: ONDANSETRON HCL INJ 2MG/ML 2ML 2 MG/ML VIAL IV PRN (19:30)
[2020-12-29 20:00] VITALS: BP_SYST 112; BP_SYST 90; BP_DIAS 70; BP_DIAS 90
[2020-12-29 21:00] VITALS: BP 121/88
[2020-12-29] MEDS ORDERED: D5.45%NS/KCL 20MEQ 1,000 ML IV ONE (21:15)
[2020-12-29] MEDS: ZOLPIDEM TARTRATE 5 MG TAB PO PRN (21:15)
[2020-12-29 22:00] VITALS: BP 128/99
[2020-12-29 23:00] VITALS: BP 107/75
[2020-12-30] VITALS (20 sets, daily range): BP systolic 92–148; BP diastolic 62–116
[2020-12-30] MEDS: BENZONATATE 100 MG CAP PO PRN ×3 (02:33→22:13)
[2020-12-30] MEDS: ACETAMINOPHEN 325 MG TAB PO PRN (02:33)
[2020-12-30] MEDS: LEVOTHYROXINE SODIUM 50 MCG TAB PO SCH (07:37)
[2020-12-30 07:49] LABS: BASOPHILS % 0.1 % (0.0-1.0); HEMOGLOBIN 10.9 g/dL (14.0-18.0); LYMPHOCYTES % 8.9 % (18.0-39.1); MEAN CORPUSCULAR HEMOGLOBIN 29.5 pg (28-32); MEAN CORPUSCULAR HGB CONC 32.1 g/dL (31-35); MEAN CORPUSCULAR VOLUME 92.1 fL (81-99); MONOCYTES % 9.3 % (4.4-11.3); NEUTROPHILS # (AUTO) 9.1 (2.1-6.9); NEUTROPHILS % 80.7 % (38.7-80.0); PLATELET COUNT 326 x10e3/uL (140-360); RED BLOOD COUNT 3.69 x10e6/uL (4.3-5.7); RED CELL DISTRIBUTION WIDTH 16.7 % (11.7-14.4)
[2020-12-30 08:07] LABS: ALBUMIN/GLOBULIN RATIO 0.8 (0.8-2.0); ANION GAP 14.6 mmol/L (8-16); CALCIUM 8.1 mg/dL (8.4-10.2); CREATININE, SERUM 1.19 mg/dL (0.72-1.25); POTASSIUM 4.6 mmol/L (3.5-5.1)
[2020-12-30 08:19] LABS: CREATINE KINASE MB 2.3 ng/mL (0-5.0)
[2020-12-30] MEDS: FAMOTIDINE 20 MG TAB PO SCH ×2 (08:19→16:36)
[2020-12-30] MEDS: DOCUSATE SODIUM 100 MG CAP PO SCH ×2 (08:19→16:36)
[2020-12-30 15:20] LABS: CLARITY,URINE SL CLOUDY (CLEAR); COLOR,URINE YELLOW (YELLOW)
[2020-12-30 15:21] LABS: KETONES,URINE NEGATIVE (NEGATIVE); LEUKOCYTE ESTERASE ,URINE NEGATIVE (NEGATIVE); NITRITE,URINE NEGATIVE (NEGATIVE); PROTEIN,URINE DIPSTICK 1+ (NEGATIVE); URINE UROBILINOGEN 0.2 mg/dL (0.2 - 1)
[2020-12-30 15:29] LABS: BACTERIA,URINE MANY /HPF; EPITHELIAL CELLS,URINE FEW /LPF; MUCUS,URINE FEW (RARE); RBC,URINE 0-5 /HPF (0-5); WBC,URINE (MAN) 0-5 /HPF (0-5)
[2020-12-30] MEDS: HEPARIN 25,000 UNIT 1,500 UNIT in DEXTROSE 5% 250ML 250 ML IV SCH (15:53)
[2020-12-30] MEDS: ZOLPIDEM TARTRATE 5 MG TAB PO PRN (22:13)
[2020-12-31] VITALS (7 sets, daily range): BP systolic 108–156; BP diastolic 60–95
[2020-12-31] MEDS ORDERED: HEPARIN 25,000 UNIT DRIP IV ONE ×2 (04:55→05:00)
[2020-12-31] MEDS: BENZONATATE 100 MG CAP PO PRN ×2 (05:05→22:46)
[2020-12-31] MEDS: ACETAMINOPHEN 325 MG TAB PO PRN ×2 (05:06→22:52)
[2020-12-31] MEDS: HEPARIN 25,000 UNIT 1,500 UNIT in DEXTROSE 5% 250ML 250 ML IV SCH ×2 (05:07→19:23)
[2020-12-31] MEDS: FAMOTIDINE 20 MG TAB PO SCH ×3 (09:02→16:48)
[2020-12-31] MEDS: DOCUSATE SODIUM 100 MG CAP PO SCH ×2 (09:02→16:37)
[2020-12-31] MEDS: LEVOTHYROXINE SODIUM 50 MCG TAB PO SCH (09:02)
[2020-12-31] MEDS: ZOLPIDEM TARTRATE 5 MG TAB PO PRN (22:46)
[2021-01-01] VITALS (8 sets, daily range): BP systolic 110–133; BP diastolic 62–84
[2021-01-01 06:37] LABS: BASOPHILS % 0.5 % (0.0-1.0); EOSINOPHILS # (AUTO) 0.2 (0.0-0.4); EOSINOPHILS % 2.4 % (0.0-6.0); HEMATOCRIT 29.1 % (38.2-49.6); HEMOGLOBIN 9.2 g/dL (14.0-18.0); LYMPHOCYTES # (AUTO) 1.8 (1.0-3.2); LYMPHOCYTES % 26.6 % (18.0-39.1); MEAN CORPUSCULAR HEMOGLOBIN 29.8 pg (28-32); MEAN CORPUSCULAR HGB CONC 31.6 g/dL (31-35); MEAN CORPUSCULAR VOLUME 94.2 fL (81-99); MONOCYTES # (AUTO) 0.7 (0.2-0.8); NEUTROPHILS % 59.9 % (38.7-80.0); PLATELET COUNT 256 x10e3/uL (140-360); RED BLOOD COUNT 3.09 x10e6/uL (4.3-5.7); RED CELL DISTRIBUTION WIDTH 16.4 % (11.7-14.4)
[2021-01-01 07:12] LABS: ALBUMIN 2.7 g/dL (3.5-5.0); ALBUMIN/GLOBULIN RATIO 0.9 (0.8-2.0); ANION GAP 13.6 mmol/L (8-16); CALCIUM 8.1 mg/dL (8.4-10.2); CREATININE, SERUM 0.99 mg/dL (0.72-1.25); POTASSIUM 3.6 mmol/L (3.5-5.1)
[2021-01-01] MEDS: LEVOTHYROXINE SODIUM 50 MCG TAB PO SCH (09:16)
[2021-01-01] MEDS: DOCUSATE SODIUM 100 MG CAP PO SCH ×2 (09:16→16:56)
[2021-01-01] MEDS: APIXAB 2.5 MG TABLET PO SCH ×2 (11:52→16:56)
[2021-01-01] MEDS: FAMOTIDINE 20 MG TAB PO SCH (16:56)
[2021-01-01] MEDS: ZOLPIDEM TARTRATE 5 MG TAB PO PRN (21:26)
[2021-01-01] MEDS: ACETAMINOPHEN 325 MG TAB PO PRN (21:26)
[2021-01-01] MEDS: BENZONATATE 100 MG CAP PO PRN (21:26)
[2021-01-02 00:11] VITALS: BP 140/93
[2021-01-02 05:10] VITALS: BP 118/73
[2021-01-02 05:33] LABS: BASOPHILS # (AUTO) 0.1 (0.0-0.1); BASOPHILS % 0.8 % (0.0-1.0); EOSINOPHILS # (AUTO) 0.2 (0.0-0.4); EOSINOPHILS % 3.7 % (0.0-6.0); HEMATOCRIT 30.4 % (38.2-49.6); HEMOGLOBIN 9.4 g/dL (14.0-18.0); LYMPHOCYTES # (AUTO) 1.4 (1.0-3.2); LYMPHOCYTES % 24.1 % (18.0-39.1); MEAN CORPUSCULAR HEMOGLOBIN 29.6 pg (28-32); MEAN CORPUSCULAR HGB CONC 30.9 g/dL (31-35); MEAN CORPUSCULAR VOLUME 95.6 fL (81-99); MONOCYTES # (AUTO) 0.6 (0.2-0.8); MONOCYTES % 10.2 % (4.4-11.3); NEUTROPHILS # (AUTO) 3.6 (2.1-6.9); NEUTROPHILS % 60.5 % (38.7-80.0); PLATELET COUNT 255 x10e3/uL (140-360); RED BLOOD COUNT 3.18 x10e6/uL (4.3-5.7); RED CELL DISTRIBUTION WIDTH 16.5 % (11.7-14.4)
[2021-01-02 06:41] LABS: ALBUMIN 2.8 g/dL (3.5-5.0); ANION GAP 15.9 mmol/L (8-16); CREATININE, SERUM 0.94 mg/dL (0.72-1.25); POTASSIUM 3.9 mmol/L (3.5-5.1)
[2021-01-02] MEDS: ACETAMINOPHEN 325 MG TAB PO PRN ×2 (07:30→14:20)
[2021-01-02] MEDS: LEVOTHYROXINE SODIUM 50 MCG TAB PO SCH (07:30)
[2021-01-02] MEDS: BENZONATATE 100 MG CAP PO PRN ×2 (07:30→12:30)
[2021-01-02] MEDS: FAMOTIDINE 20 MG TAB PO SCH (07:30)
[2021-01-02 07:40] VITALS: BP 123/71
[2021-01-02 08:04] VITALS: BP 123/71
[2021-01-02] MEDS: APIXAB 2.5 MG TABLET PO SCH (08:25)
[2021-01-02] MEDS: DOCUSATE SODIUM 100 MG CAP PO SCH (08:25)
[2021-01-02 11:40] VITALS: BP 133/90
[2021-01-02] MEDS ORDERED: TESSALON PERLE100 MG PO (14:43)
[2021-01-02] MEDS ORDERED: ELIQUIS5 MG PO (14:46)
[2021-01-02] MEDS ORDERED: PANTOPRAZOLE SO40 MG PO (14:48)
[2021-01-02 15:54] VITALS: BP 123/92
[2021-01-02] MEDS ORDERED: ONDANSETRON HCL 4 MG ORAL DISINTEGRATING TAB PO PRN (18:15)
== END 2021-01-02 18:53 | disposition home or self-care (01) | DRG 175 ==
LOC: ER 14:44 → ERHOLD 16:03 → ICU 19:25 → MED/SURG2 12-30 18:00
PROVIDERS: ADMIT Internal Medicine; ATTEND Internal Medicine
DX: I26.99 Other pulmonary embolism without acute cor pulmonale (principal); J18.9 Pneumonia, unspecified organism; J96.01 Acute respiratory failure with hypoxia; Z68.42 Body mass index [BMI] 45.0-49.9, adult; I10 Essential (primary) hypertension; E03.9 Hypothyroidism, unspecified; E66.01 Morbid (severe) obesity due to excess calories; D63.8 Anemia in other chronic diseases classified elsewhere; Z20.822 Contact with and (suspected) exposure to COVID-19
CPT/HCPCS: 36415; 71045; 71260; 80053; 80061; 81001; 82550; 82553; 83605; 83880; 84484; 85025; 85610; 85730; 87040; 87086; 93005; 93306; 93970; 96365; 96366; 97139; 99285; J0456; J0696; J1644; J2930; J7050; Q9967; U0002

== ENCOUNTER 2024-01-10 17:06 | Inpatient (IN) | payer BC, OTHER ==
[~2024-01-10] VITALS: Ht 182.9 cm; Wt 136.1 kg
[~2024-01-10 17:06] MED LIST changes: +ELIQUIS5 MG PO; +PANTOPRAZOLE SO40 MG PO; +TESSALON PERLE100 MG PO
[2024-01-10] MEDS ORDERED: SODIUM CHLORIDE FLUSH 10 ML SYR IV PRN (17:45)
[2024-01-10 17:50] LABS: BASOPHILS # (AUTO) 0.1 (0.0-0.1); BASOPHILS % 0.5 % (0.0-1.0); EOSINOPHILS # (AUTO) 0.1 (0.0-0.4); EOSINOPHILS % 1.4 % (0.0-6.0); HEMOGLOBIN 17.3 g/dL (14.0-18.0); LYMPHOCYTES # (AUTO) 1.6 (1.0-3.2); LYMPHOCYTES % 15.8 % (18.0-39.1); MEAN CORPUSCULAR HEMOGLOBIN 31.1 pg (28-32); MEAN CORPUSCULAR HGB CONC 32.6 g/dL (31-35); MEAN CORPUSCULAR VOLUME 95.3 fL (81-99); MONOCYTES % 9.3 % (4.4-11.3); NEUTROPHILS # (AUTO) 7.4 (2.1-6.9); NEUTROPHILS % 72.3 % (38.7-80.0); PLATELET COUNT 292 x10e3/uL (140-360); RED BLOOD COUNT 5.56 x10e6/uL (4.3-5.7); RED CELL DISTRIBUTION WIDTH 13.6 % (11.7-14.4); WHITE BLOOD COUNT 10.18 x10e3/uL (4.8-10.8)
[2024-01-10 18:08] LABS: ALBUMIN 3.5 g/dL (3.5-5.0); ALBUMIN/GLOBULIN RATIO 1.1 (0.8-2.0); ANION GAP 15.9 mmol/L (8-16); BILIRUBIN,TOTAL 1.4 mg/dL (0.2-1.2); CALCIUM 8.9 mg/dL (8.4-10.2); CREATININE, SERUM 1.35 mg/dL (0.72-1.25); POTASSIUM 3.9 mmol/L (3.5-5.1); TOTAL PROTEIN 6.8 g/dL (6.5-8.1)
[2024-01-10] MEDS: DICYCLOMINE HCL 20 MG/2 ML VIAL IM ONE (18:39)
[2024-01-10] MEDS: KETOROLAC TROMETHAMINE 30 MG/ML VIAL IV STA (18:40)
[2024-01-10] MEDS ORDERED: Morphine 4mg INJECTION 4 MG/ML INJ IV PRN (21:30)
[2024-01-10] MEDS ORDERED: ONDANSETRON HCL INJ 2MG/ML 2ML 2 MG/ML VIAL IV PRN (21:30)
[2024-01-10] MEDS: SODIUM CHLORIDE 0.9% 1000ML 1,000 ML IV SCH (22:09)
[2024-01-10 23:45] VITALS: PULSE 66; RESP 18; O2SAT 96
[2024-01-11] VITALS (11 sets, daily range): BP systolic 111–155; BP diastolic 62–93; PULSE 57–78; RESP 14–18; TEMP 97.1–98.7; O2SAT 96–100
[2024-01-11 07:28] LABS: BASOPHILS % 0.3 % (0.0-1.0); EOSINOPHILS # (AUTO) 0.1 (0.0-0.4); EOSINOPHILS % 1.4 % (0.0-6.0); HEMATOCRIT 49.2 % (38.2-49.6); HEMOGLOBIN 15.9 g/dL (14.0-18.0); LYMPHOCYTES # (AUTO) 0.7 (1.0-3.2); LYMPHOCYTES % 10.2 % (18.0-39.1); MEAN CORPUSCULAR HEMOGLOBIN 30.9 pg (28-32); MEAN CORPUSCULAR HGB CONC 32.3 g/dL (31-35); MEAN CORPUSCULAR VOLUME 95.5 fL (81-99); MONOCYTES # (AUTO) 0.9 (0.2-0.8); MONOCYTES % 13.8 % (4.4-11.3); NEUTROPHILS # (AUTO) 4.9 (2.1-6.9); PLATELET COUNT 251 x10e3/uL (140-360); RED BLOOD COUNT 5.15 x10e6/uL (4.3-5.7); RED CELL DISTRIBUTION WIDTH 13.6 % (11.7-14.4); WHITE BLOOD COUNT 6.65 x10e3/uL (4.8-10.8)
[2024-01-11 07:57] LABS: ANION GAP 13.1 mmol/L (8-16); BILIRUBIN,TOTAL 4.1 mg/dL (0.2-1.2); CALCIUM 8.3 mg/dL (8.4-10.2); CREATININE, SERUM 1.5 mg/dL (0.72-1.25); POTASSIUM 4.1 mmol/L (3.5-5.1); TOTAL PROTEIN 5.9 g/dL (6.5-8.1)
[2024-01-12] VITALS (7 sets, daily range): BP systolic 119–149; BP diastolic 68–89; PULSE 66–87; RESP 17–19; TEMP 97.8–98.7; O2SAT 97–99
[2024-01-12 06:57] LABS: BASOPHILS % 0.5 % (0.0-1.0); EOSINOPHILS # (AUTO) 0.2 (0.0-0.4); EOSINOPHILS % 3.1 % (0.0-6.0); HEMATOCRIT 49.6 % (38.2-49.6); LYMPHOCYTES # (AUTO) 0.8 (1.0-3.2); LYMPHOCYTES % 13.4 % (18.0-39.1); MEAN CORPUSCULAR HEMOGLOBIN 30.5 pg (28-32); MEAN CORPUSCULAR HGB CONC 32.3 g/dL (31-35); MEAN CORPUSCULAR VOLUME 94.7 fL (81-99); MONOCYTES # (AUTO) 0.7 (0.2-0.8); NEUTROPHILS # (AUTO) 4.4 (2.1-6.9); NEUTROPHILS % 71.7 % (38.7-80.0); PLATELET COUNT 249 x10e3/uL (140-360); RED BLOOD COUNT 5.24 x10e6/uL (4.3-5.7); RED CELL DISTRIBUTION WIDTH 13.5 % (11.7-14.4); WHITE BLOOD COUNT 6.18 x10e3/uL (4.8-10.8)
[2024-01-12 07:28] LABS: ALBUMIN 2.9 g/dL (3.5-5.0); ANION GAP 12.9 mmol/L (8-16); BILIRUBIN,TOTAL 3.3 mg/dL (0.2-1.2); CALCIUM 8.4 mg/dL (8.4-10.2); CREATININE, SERUM 1.22 mg/dL (0.72-1.25); POTASSIUM 3.9 mmol/L (3.5-5.1); TOTAL PROTEIN 5.7 g/dL (6.5-8.1)
[2024-01-12] MEDS ORDERED: HYDRALAZINE HCL 20 MG/ML VIAL IV PRN (12:00)
[2024-01-13] VITALS (7 sets, daily range): BP systolic 136–153; BP diastolic 73–91; PULSE 66–76; RESP 17–21; TEMP 97.9–98.5; O2SAT 97–99
[2024-01-13 05:07] LABS: BASOPHILS % 0.4 % (0.0-1.0); EOSINOPHILS # (AUTO) 0.2 (0.0-0.4); EOSINOPHILS % 3.3 % (0.0-6.0); HEMATOCRIT 50.1 % (38.2-49.6); LYMPHOCYTES # (AUTO) 1.5 (1.0-3.2); LYMPHOCYTES % 21.2 % (18.0-39.1); MEAN CORPUSCULAR HEMOGLOBIN 30.7 pg (28-32); MEAN CORPUSCULAR HGB CONC 31.9 g/dL (31-35); MEAN CORPUSCULAR VOLUME 96.2 fL (81-99); MONOCYTES # (AUTO) 0.8 (0.2-0.8); MONOCYTES % 11.3 % (4.4-11.3); NEUTROPHILS # (AUTO) 4.4 (2.1-6.9); NEUTROPHILS % 63.2 % (38.7-80.0); PLATELET COUNT 262 x10e3/uL (140-360); RED BLOOD COUNT 5.21 x10e6/uL (4.3-5.7); RED CELL DISTRIBUTION WIDTH 13.9 % (11.7-14.4); WHITE BLOOD COUNT 6.89 x10e3/uL (4.8-10.8)
[2024-01-13 05:31] LABS: ALBUMIN 2.8 g/dL (3.5-5.0); ALBUMIN/GLOBULIN RATIO 0.8 (0.8-2.0); ANION GAP 13.8 mmol/L (8-16); BILIRUBIN,TOTAL 1.3 mg/dL (0.2-1.2); CALCIUM 8.2 mg/dL (8.4-10.2); CREATININE, SERUM 1.22 mg/dL (0.72-1.25); POTASSIUM 3.8 mmol/L (3.5-5.1); TOTAL PROTEIN 6.2 g/dL (6.5-8.1)
[2024-01-14] VITALS (7 sets, daily range): BP systolic 112–166; BP diastolic 54–103; PULSE 72–88; RESP 16–18; TEMP 97.5–98.4; O2SAT 96–99
[2024-01-14 05:48] LABS: BASOPHILS # (AUTO) 0.1 (0.0-0.1); BASOPHILS % 0.7 % (0.0-1.0); EOSINOPHILS # (AUTO) 0.2 (0.0-0.4); EOSINOPHILS % 3.2 % (0.0-6.0); HEMATOCRIT 50.3 % (38.2-49.6); HEMOGLOBIN 16.4 g/dL (14.0-18.0); LYMPHOCYTES # (AUTO) 1.4 (1.0-3.2); LYMPHOCYTES % 19.4 % (18.0-39.1); MEAN CORPUSCULAR HEMOGLOBIN 31.1 pg (28-32); MEAN CORPUSCULAR HGB CONC 32.6 g/dL (31-35); MEAN CORPUSCULAR VOLUME 95.3 fL (81-99); MONOCYTES # (AUTO) 0.8 (0.2-0.8); MONOCYTES % 10.4 % (4.4-11.3); NEUTROPHILS # (AUTO) 4.7 (2.1-6.9); NEUTROPHILS % 65.7 % (38.7-80.0); PLATELET COUNT 279 x10e3/uL (140-360); RED BLOOD COUNT 5.28 x10e6/uL (4.3-5.7)
[2024-01-14 06:03] LABS: ALBUMIN/GLOBULIN RATIO 0.9 (0.8-2.0); ANION GAP 12.8 mmol/L (8-16); BILIRUBIN,TOTAL 1.5 mg/dL (0.2-1.2); CALCIUM 8.6 mg/dL (8.4-10.2); CREATININE, SERUM 1.2 mg/dL (0.72-1.25); POTASSIUM 3.8 mmol/L (3.5-5.1); TOTAL PROTEIN 6.3 g/dL (6.5-8.1)
[2024-01-14] MEDS ORDERED: BUPIVACAINE 0.25% 30ML SDV ONE ×2 (11:53→13:39)
[2024-01-14] MEDS ORDERED: IOPAMIDOL 200 MG/ML 20 ML VIAL IT ONE (11:53)
[2024-01-14] MEDS ORDERED: IOPAMIDOL 610MG/1ML 300 MG/ML VIAL IV ONE (11:54)
[2024-01-14] MEDS ORDERED: SODIUM CHLORIDE 0.9% 100 ML ONE (12:17)
[2024-01-14] MEDS: PIPERACILLIN/TAZOBACTAM 3.375 GM VIAL ONE (12:35)
[2024-01-14] MEDS ORDERED: ROCURONIUM BROMIDE 10 MG/ML 5ML VIAL IV ONE (12:45)
[2024-01-14] MEDS ORDERED: SEVOFLURANE INHAL SOLN 250 ML PEN BTL ONE (12:45)
[2024-01-14] MEDS ORDERED: PHENYLEPHRINE HCL 1% 10 MG/ML VIAL ONE (12:45)
[2024-01-14] MEDS ORDERED: ONDANSETRON HCL INJ 2MG/ML 2ML 2 MG/ML VIAL ONE (12:45)
[2024-01-14] MEDS ORDERED: PROPOFOL IV EMULSION 10 MG/ML 20 ML VIAL ONE (12:45)
[2024-01-14] MEDS ORDERED: DEXAMETHASONE SOD PHOS INJ 4 MG/ML SDV ONE (12:45)
[2024-01-14] MEDS ORDERED: SUGAMMADEX SODIUM 200 MG/2 ML VIAL IV ONE (12:45)
[2024-01-14] MEDS ORDERED: KETOROLAC TROMETHAMINE 30 MG/ML VIAL IV PRN (14:00)
[2024-01-14] MEDS ORDERED: HYDROCODONE/APAP 7.5MG-325MG 1 EA TAB PO PRN (14:00)
[2024-01-14] MEDS: SODIUM CHLORIDE 0.9% 1000ML 1,000 ML IV SCH (14:25)
[2024-01-14] MEDS: FENTANYL CITRATE/PF 100MCG/2 ML INJ ONE (14:26)
[2024-01-14] MEDS: HYDROMORPHONE 1MG/1ML INJ IV PRN (14:35)
[2024-01-14] MEDS: HYDROMORPHONE 1MG/1ML INJ ONE (14:45)
[2024-01-14] MEDS ORDERED: Morphine 10mg syringe 10 MG/ML INJ ONE (16:48)
[2024-01-14] MEDS ORDERED: FENTANYL CITRATE/PF 100MCG/2 ML INJ ONE (16:48)
[2024-01-15] VITALS: BP 135/67; PULSE 79; RESP 18; TEMP 98.2; O2SAT 94
[2024-01-15 05:25] VITALS: BP 134/70; PULSE 84; RESP 20; TEMP 98.1; O2SAT 96
[2024-01-15 05:46] LABS: BASOPHILS % 0.2 % (0.0-1.0); HEMATOCRIT 50.2 % (38.2-49.6); LYMPHOCYTES % 7.8 % (18.0-39.1); MEAN CORPUSCULAR HEMOGLOBIN 31.1 pg (28-32); MEAN CORPUSCULAR HGB CONC 31.9 g/dL (31-35); MEAN CORPUSCULAR VOLUME 97.5 fL (81-99); MONOCYTES # (AUTO) 0.9 (0.2-0.8); MONOCYTES % 7.1 % (4.4-11.3); NEUTROPHILS # (AUTO) 10.8 (2.1-6.9); NEUTROPHILS % 84.1 % (38.7-80.0); PLATELET COUNT 311 x10e3/uL (140-360); RED BLOOD COUNT 5.15 x10e6/uL (4.3-5.7); RED CELL DISTRIBUTION WIDTH 13.8 % (11.7-14.4); WHITE BLOOD COUNT 12.88 x10e3/uL (4.8-10.8)
[2024-01-15 06:19] LABS: ALBUMIN 2.9 g/dL (3.5-5.0); ALBUMIN/GLOBULIN RATIO 0.8 (0.8-2.0); ANION GAP 17.1 mmol/L (8-16); BILIRUBIN,TOTAL 1.2 mg/dL (0.2-1.2); CALCIUM 8.3 mg/dL (8.4-10.2); CREATININE, SERUM 1.45 mg/dL (0.72-1.25); POTASSIUM 4.1 mmol/L (3.5-5.1); TOTAL PROTEIN 6.4 g/dL (6.5-8.1)
[2024-01-15 06:43] LABS: CHOL/HDL RATIO 7.5 (3.9-4.7); MAGNESIUM 1.8 MG/DL (1.3-2.1); PHOSPHORUS 3.4 MG/DL (2.3-4.7)
[2024-01-15 07:10] LABS: FREE T4 (FREE THYROXINE) 1.24 ng/dL (0.8-1.8); THYROID STIMULATING HORMONE 1.051 uIU/mL (0.350-4.940)
[2024-01-15] MEDS ORDERED: LEVOTHYROXINE SODIUM 50 MCG TAB PO SCH (07:30)
[2024-01-15 08:00] VITALS: BP 134/70; PULSE 84; RESP 20; TEMP 98.1; O2SAT 96
[2024-01-15] MEDS ORDERED: ASCORBIC ACID 500 MG TAB PO SCH (09:00)
[2024-01-15] MEDS ORDERED: CHOLECALCIFEROL 400 UNIT TAB PO SCH (09:00)
[2024-01-15] MEDS ORDERED: OMEGA 3 POLYUNSAT FATTY ACIDS 1000 MG SOFTGEL PO SCH (09:00)
[2024-01-15] MEDS ORDERED: POTASSIUM CHLORIDE 20 MEQ TAB CR PO SCH (09:00)
[2024-01-15] MEDS ORDERED: NEBIVOLOL HCL 2.5 MG TABLET PO SCH (09:00)
[2024-01-15] MEDS ORDERED: CYANOCOBALAMIN 1,000 MCG TAB PO SCH (09:00)
[2024-01-15] MEDS ORDERED: PRASTERONE PO SCH (09:00)
[2024-01-15] MEDS ORDERED: CALCIUM CARB PO SCH (09:00)
[2024-01-15] MEDS ORDERED: MULTIVITAMINS/MINERALS TAB PO SCH (09:00)
[2024-01-15] MEDS ORDERED: FUROSEMIDE 40 MG TAB PO SCH (09:00)
[2024-01-15 09:30] VITALS: BP 131/61; PULSE 74; RESP 20; TEMP 97.9; O2SAT 99
== END 2024-01-15 10:00 | disposition home or self-care (01) | DRG 418 ==
LOC: ER 17:23 → ERHOLD 21:29 → MED/SURG 01-11 13:30
PROVIDERS: ADMIT Internal Medicine; ATTEND Internal Medicine
PROC: BF131ZZ Fluoroscopy of Gallbladder and Bile Ducts using Low Osmolar Contrast (ICD-10-PCS; 2024-01-14)
PROC: 0FT44ZZ Resection of Gallbladder, Percutaneous Endoscopic Approach (ICD-10-PCS; principal; 2024-01-14 12:05)
DX: K80.10 Calculus of gallbladder with chronic cholecystitis without obstruction (principal); E87.1 Hypo-osmolality and hyponatremia; N17.9 Acute kidney failure, unspecified; R17 Unspecified jaundice; Z68.41 Body mass index [BMI] 40.0-44.9, adult; E86.0 Dehydration; I10 Essential (primary) hypertension; E78.5 Hyperlipidemia, unspecified; E03.9 Hypothyroidism, unspecified; G47.33 Obstructive sleep apnea (adult) (pediatric); E66.9 Obesity, unspecified; N28.1 Cyst of kidney, acquired; K57.30 Diverticulosis of large intestine without perforation or abscess without bleeding; Z90.49 Acquired absence of other specified parts of digestive tract; Z79.01 Long term (current) use of anticoagulants; Z79.899 Other long term (current) drug therapy; Z80.52 Family history of malignant neoplasm of bladder; Z80.7 Family history of other malignant neoplasms of lymphoid, hematopoietic and related tissues
CPT/HCPCS: 36415; 74181; 74300; 76705; 80053; 80061; 83036; 83690; 83735; 84100; 84439; 84443; 84484; 85025; 88304; 88312; 93005; 94799; 99284; C1766; J1100; J1171; J1885; J2270; J2371; J2405; J2470; J2543; J7030; J7050; Q9967